=== PATIENT | female | born 1970 | race Caucasian/White ===

== ENCOUNTER 2017-03-26 09:01 | Emergency (ER) | payer BC ==
[2017-03-26 09:33] VITALS: BP 126/72
--- NOTE | 2017-03-26 09:34 | UC ---
Respiratory Complaint HPI - HPI Summary HPI Summary: Cough and congestion since yesterday. She had a low grade fever yesterday but chills may have started on Monday. She has had a mild cough for a few weeks. Her son was sick about 1 week ago with similar symptoms. She is healthy and has no chronic lung disease. One diabetic child at home and has CML. She is a non smoker. - History of Current Complaint Chief Complaint: UCRespiratory Stated Complaint: SINUSES/BILAT EAR PAIN Time Seen by Provider: 03/26/17 09:21 Hx Obtained From: Patient Hx Last Menstrual Period: "The middle of last month ... " ?: No Onset/Duration: Gradual Onset, Lasting Days Timing: Constant Severity Initially: Moderate Severity Currently: Moderate Character: Cough: Nonproductive Aggravating Factors: Deep Breaths, Recumbent Position Alleviating Factors: Upright Position, Spontaneous Resolution Associated Signs And Symptoms: Positive: Fever, URI, Nasal Congestion. Negative : Dyspnea, Hemoptysis, Calf Pain, Calf Swelling, Sinus Discomfort - Allergies/Home Medications Allergies/Adverse Reactions: Allergies Allergy/AdvReac Type Severity Reaction Status Date / Time No Known Allergies Allergy Verified 03/26/17 09:10 Home Medications: Home Medications Cetirizine* [ZyrTEC 10 MG TAB*] 10 mg PO DAILY 03/26/17 [History Confirmed 03/26] Levothyroxine TAB* [Synthroid TAB*] 88 mcg PO DAILY 03/26/17 [History Confirmed 03/26/17] Kmetrydelzcee-Nququlqkqa-Hlynm [Nyquil Severe Cold/Flu 5-6.25-10-325 mg/15Ml] 30 ml PO Q6H PRN 03/26/17 [History Confirmed 03/26/17] Sertraline* [Zoloft*] 50 mg PO DAILY 03/26/17 [History Confirmed 03/26/17] PMH/Surg Hx/FS Hx/Imm Hx Previously Healthy: No - Prior smoker. - Surgical History Surgical History: Yes Surgery Procedure, Year, and Place: and Tubal Ligation, 2009, [place]; , 2008, [facility] [place] - Family History Known Family History: Positive: Hypertension - Social History Occupation: Employed Full-time Lives: With Family Alcohol Use: None Substance Use Type: None Smoking Status (MU): Former Smoker Type: Cigarettes Length of Time of Smoking/Using Tobacco: ~3/4 PPD for & Years When Did the Patient Quit Smoking/Using Tobacco: 2006 - Immunization History Most Recent Influenza Vaccination: Not the 2016/2017 Season Review of Systems Constitutional: Fever ENT: Sinus Congestion Respiratory: Cough All Other Systems Reviewed And Are Negative: Yes Physical Exam Triage Information Reviewed: Yes Appearance: Well-Appearing, No Pain Distress, Well-Nourished Vital Signs: Initial Vital Signs Temp 100.2 F 03/26/17 09:08 Pulse 96 03/26/17 09:08 Resp 18 03/26/17 09:08 BP 126/72 03/26/17 09:08 Pulse Ox 99 03/26/17 09:08 Vital Signs Reviewed: Yes Eyes: Positive: Conjunctiva Clear ENT: Positive: Pharyngeal erythema, Nasal congestion, TMs normal, Uvula midline. Negative: Nasal drainage, Sinus tenderness Neck: Positive: Supple, Nontender, No Lymphadenopathy Respiratory: Positive: Lungs clear, Normal breath sounds, No respiratory distress, No accessory muscle use. Negative: Respiratory distress, Decreased breath sounds, Accessory muscle use, Crackles, Rhonchi, Stridor Cardiovascular: Positive: RRR, No Murmur, Pulses Normal. Negative: Tachycardia Abdomen Description: Positive: Nontender, No Organomegaly, Soft. Negative: Distended, Guarding Musculoskeletal: Positive: Strength Intact, ROM Intact, No Edema Neurological: Positive: Alert, Muscle Tone Normal. Negative: Fatigued Skin: Negative: rashes UC Diagnostic Evaluation - Laboratory O2 Sat by Pulse Oximetry: 99 Respiratory Course/Dx - Course Course Of Treatment: No clinical signs of pneumonia. There is a fever but no sob , tachycardia, productive cough or rales. Influenza neg. Supportive care described. - Differential Dx/Diagnosis Provider Diagnoses: viral uri. acute bronchitis. Discharge - Discharge Plan Condition: Good Disposition: HOME Patient Education Materials: Acute Bronchitis (ED) Referrals: Dara Mcduffie MD [Medical Doctor] -
== END 2017-03-26 10:15 | disposition home or self-care (01) ==
LOC: UCCORT 09:01
DX: J06.9 Acute upper respiratory infection, unspecified (principal); J20.9 Acute bronchitis, unspecified; Z87.891 Personal history of nicotine dependence
CPT/HCPCS: 87502; 99212; G0463